=== PATIENT | female | born 1995 | race Two or more races ===

== ENCOUNTER 2024-07-26 08:46 | Emergency (ER) | payer OTHER ==
[~2024-07-26] VITALS: Ht 167.6 cm; Wt 52.2 kg
[2024-07-26] MEDS ORDERED: DILAUDID4 MG PO (09:01)
[2024-07-26 09:02] VITALS: BP 111/73; O2SAT 99
[2024-07-26 09:54] LABS: MEAN CELL VOLUME 104.2 fL (80.00-100.00); MEAN CORPUSCULAR HGB CONC 36.8 g/dl (32.0-36.0); PLATELET COUNT 337 K/uL (150-450); RED BLOOD COUNT 1.98 M/uL (4.00-6.00)
[2024-07-26 09:55] LABS: MEAN CORPUSCULAR HEMOGLOBIN 38.3 pg (27.00-32.0)
[2024-07-26 09:56] LABS: HEMATOCRIT 20.6 % (36.0-45.00); HEMOGLOBIN 7.6 g/dL (12.0-15.00); RED CELL DISTRIBUTION WIDTH 26.2 % (11.5-14.5)
[2024-07-26 10:34] LABS: CALCIUM 8.8 mg/dL (8.5-10.1); CREATININE SERUM 0.6 mg/dL (0.55-1.02); GFR 120.84
[2024-07-26 10:35] LABS: POTASSIUM 3.8 mEq/L (3.5-5.1)
[2024-07-26 10:46] LABS: URINE APPEARANCE Cloudy; URINE BILIRRUBIN Negative (NEGATIVE); URINE BLOOD Large; URINE COLOR Dark Yellow; URINE GLUCOSE Negative (NEGATIVE); URINE LEUKOCYTE Small; URINE NITRATE Negative; URINE PROTEIN Trace (NEGATIVE)
[2024-07-26 10:50] LABS: URINE BACTERIA 253.2 uL (0.0-1933); URINE EPITHELIAL CELLS 64.4 uL (0.0-38.8); URINE RBC 394.5 uL (0.0-20.8); URINE WBC 40.1 uL (0.0-23.2)
[2024-07-26 11:40] LABS: URINE KETONE 40 (NEGATIVE)
== END 2024-07-26 12:06 | disposition home or self-care (01) ==
LOC: ER 08:47
PROVIDERS: General Practice
DX: N39.0 Urinary tract infection, site not specified (principal); D57.1 Sickle-cell disease without crisis